=== PATIENT | male | born 1960 | race American Indian/Alaskan Native ===

== ENCOUNTER 2018-01-27 12:45 | Emergency (ER) | payer BC, OTHER ==
[2018-01-27 13:30] VITALS: BMI 32.1
--- NOTE | 2018-01-27 13:41 | ED PDOC ---
Arrival/HPI - General Historian: Patient - History of Present Illness Time/Duration: 4-6 hours Symptom Onset: Gradual Symptom Course: Unchanged Quality: Aching Severity Level: 7 <Jose Reno - Last Filed: 01/27/18 16:12> - History of Present Illness Activities at Onset: Rest Context: Home <Paulo cAevedo - Last Filed: 01/27/18 18:25> - General Chief Complaint: High Blood Pressure - History of Present Illness Narrative History of Present Illness (Text): Patient is a 57 year old male with a past medical history of hypertension, hyperlipidemia, and diabetes who presents to the emergency room for evaluation and treatment of elevated blood pressure. Patient states his systolic blood pressure was in the 190s this AM. Also admits to new onset left shoulder pain when he reached to grab an object. Pain is a dull aching sensation and remains localized to the posterior deltoid. Rated a 7/10. Denies fever, chills, chest pain, SOB, abdominal pain, nausea, vomiting, diarrhea, constipation, and urinary symptoms. 01/27/18 13:33 (Jose Reno) Past Medical History - Provider Review Nursing Documentation Reviewed: Yes - Travel History Have you recently traveled outside [place] w/in the past 3 mons?: No - Infectious Disease Hx of Infectious Diseases: None - Cardiac Hx Hypertension: Yes - Neurological Hx Migraine: Yes - Endocrine/Metabolic Hx Diabetes Mellitus Type 2: Yes - Musculoskeletal/Rheumatological Hx Arthritis: Yes ("left hip") - Psychiatric Hx Substance Use: No - Anesthesia Hx Anesthesia: Yes <Jose Reno - Last Filed: 01/27/18 16:12> - Past History Past History: Non-Contributing <Paulo Acevedo - Last Filed: 01/27/18 18:25> Family/Social History - Physician Review Nursing Documentation Reviewed: Yes Family/Social History: Unknown Family HX Smoking Status: Never Smoked Hx Alcohol Use: Yes (socially) Hx Substance Use: No Substance used: marijuana <Jose Reno - Last Filed: 01/27/18 16:12> Allergies/Home Meds <Jose Reno - Last Filed: 01/27/18 16:12> <Paulo Acevedo - Last Filed: 01/27/18 18:25> Allergies/Adverse Reactions: Allergies No Known Allergies Allergy (Verified 11/03/17 13:21) Home Medications: Home Meds Medication Instructions Recorded Confirmed Nabumetone 750 mg PO BID 04/18/17 04/18/17 Pregabalin [Lyrica] 50 mg PO BID 04/18/17 04/18/17 metFORMIN [glucOPHAGE] 500 mg PO BID 04/18/17 04/18/17 Review of Systems - Review of Systems Constitutional: Normal Eyes: Normal ENT: Normal Respiratory: Normal Cardiovascular: Normal Gastrointestinal: Normal Genitourinary Male: Normal Musculoskeletal: Other (left shoulder pain) Skin: Normal Neurological: Normal Endocrine: Normal Hemo/Lymphatic: Normal Psychiatric: Normal <Jose Reno - Last Filed: 01/27/18 16:12> Physical Exam - Systems Exam Head: Present: Atraumatic, Normocephalic Pupils: Present: PERRL Extroacular Muscles: Present: EOMI Conjunctiva: Present: Normal Mouth: Present: Moist Mucous Membranes Neck: Present: Normal Range of Motion Respiratory/Chest: Present: Clear to Auscultation, Good Air Exchange. No: Respiratory Distress, Accessory Muscle Use Cardiovascular: Present: Regular Rate and Rhythm, Normal S1, S2. 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 No: Edema Neurological: Present: GCS=15, CN II-XII Intact, Speech Normal Skin: Present: Warm, Dry, Normal Color. No: Rashes Psychiatric: Present: Alert, Oriented x 3, Normal Insight, Normal Concentration <Jose Reno - Last Filed: 01/27/18 16:12> Vital Signs Reviewed: Yes Temperature: Afebrile Blood Pressure: Hypertensive Pulse: Regular Respiratory Rate: Normal Appearance: Positive for: Well-Appearing, Non-Toxic, Uncomfortable. No: Ill- Appearing, Unkept Pain Distress: None Mental Status: Positive for: Alert and Oriented X 3 <Paulo Acevedo - Last Filed: 01/27/18 18:25> Vital Signs Temp Pulse Resp BP Pulse Ox 01/27/18 15:46 88 18 162/97 H 96 01/27/18 13:49 98.3 F 92 H 18 157/95 H 98 Medical Decision Making <Jose Reno - Last Filed: 01/27/18 16:12> Re-evaluation Time: 16:30 Reassessment Condition: Improving,but remains with symptoms - RAD Interpretation Corporate Relations Director: Radiologist - EKG Interpretation Interpreted by ED Physician: Yes Type: 12 lead EKG Comparison: Similar to previous EKG <Paulo Acevedo - Last Filed: 01/27/18 18:25> ED Course and Treatment: Assessment and Plan: Patient is a 57 year old male with a past medical history of hypertension, hyperlipidemia, and diabetes who presents to the emergency room for evaluation and treatment of elevated blood pressure and left shoulder pain. Left Shoulder Pain 01/27/18 13:43 - Left shoulder xray - EKG - CXR - POC glucose 01/27/18 16:13 - left shoulder xray no acute fracture, no dislocation - EKG reviewed and appreciated- NSR HR 93bpm, QTc 460 - Chest xray- no active disease - dizziness has resolved - ok for discharge to home (Jose Reno) I performed the hx and physical exam of the patient and discussed their mgt with the RESIDENT. I reviewed the RESIDENT's NOTE and agree with the assessment and plan of care. pt appears comfortable pt is not in any distress NEURO: CNII-XII WNL, no facial asymmetries, no slurr speech, oriented x 3, NIH stroke scale ~ 0 NECK: intact ROM, no midline tenderness, no gross deformities, no step off, no nuchal rigidity, no meningeal signs, Chest: CTA b/l, no w/r/r, no accessory muscle use noted, no tachypenia EXT: intact ROM to all limbs, neurovasc intact b/l, no gross deformities, no crepitus noted, strength 5/5 grossly intact b/l, + ambulatory SKIN: cap refill < 1sec, no ulcerations, no petechiae, no gross pallor pt felt some improvements after medications vital signs remained pretty much unchanged attempt to reach out to pt's PCP was not reciprocated, unable to speak to pt's PCP pt is made aware of his medical results pt is encouraged fluids pt is encouraged outpt follow up pt will be discharged home (Paulo Acevedo) - RAD Interpretation Narrative RAD Interpretations (Text): PROCEDURE: Radiographs of the Left Shoulder HISTORY: left shoulder pain COMPARISON: No prior. FINDINGS: BONES: Normal. No fracture. JOINTS: Normal. Glenohumeral and acromioclavicular joints preserved. No osteoarthritis. SOFT TISSUES: Normal. OTHER FINDINGS: None. IMPRESSION: Normal radiographs of the left shoulder. HISTORY: pain COMPARISON: No prior. TECHNIQUE: Chest PA and lateral FINDINGS: LUNGS: No active pulmonary disease. PLEURA: No significant pleural effusion identified. No pneumothorax apparent. CARDIOVASCULAR: Normal. OSSEOUS STRUCTURES: No significant abnormalities. VISUALIZED UPPER ABDOMEN: Normal. OTHER FINDINGS: None. IMPRESSION: No active disease 01/27/18 15:22 (Jose Reno) Radiology Orders: 01/27/18 13:35 CHEST TWO VIEWS (PA/LAT) [RAD] Stat SHOULDER LEFT [RAD] Stat - EKG Interpretation EKG Interpretation (Text): EKG NSR HR 93bpm, QTc 460, no defining ST T wave changes 01/27/18 14:55 (Jose Reno) - Medication Orders Current Medication Orders: Discontinued Medications Diazepam (Valium) 5 mg PO STAT STA PRN Reason: Protocol Stop: 01/27/18 13:54 Last Admin: 01/27/18 14:48 Dose: 5 mg Disposition/Present on Arrival - Present on Arrival Any Indicators Present on Arrival: Yes History of DVT/PE: No History of Uncontrolled Diabetes: Yes Urinary Catheter: No History Surgical Site Infection Following: None - Disposition Have Diagnosis and Disposition been Completed?: Yes Disposition Time: 16:15 <Jose Reno - Last Filed: 01/27/18 16:12> - Present on Arrival History of Decub. Ulcer: No - Disposition Patient Plan: Discharge <Paulo Acevedo - Last Filed: 01/27/18 18:25> - Disposition Diagnosis: Shoulder pain, left, Dizziness, Elevated blood pressure reading Disposition: HOME/ ROUTINE Patient Problems: Current Active Problems Problem Status Onset Dizziness Acute Shoulder pain, left Acute Condition: FAIR Discharge Instructions (ExitCare): Hypertension (ED), High Blood Pressure (DC) , Dizziness, Nonvertigo, (DC) Print Language: ROMANSH Additional Instructions: MENG VIEYRA, thank you for letting us take care of you today. Your provider was Paulo Acevedo MD and you were treated for dizziness and shoulder pain. The emergency medical care you received today was directed at your acute symptoms. If you were prescribed any medication, please fill it and take as directed. It may take several days for your symptoms to resolve. Return to the Emergency Department if your symptoms worsen, do not improve, or if you have any other problems. Please contact your doctor or call one of the physicians/clinics you have been referred to that are listed on the Patient Visit Information form that is included in your discharge packet. Bring any paperwork you were given at discharge with you along with any medications you are taking to your follow up visit. Our treatment cannot replace ongoing medical care by a primary care provider outside of the emergency department. Thank you for allowing the [facility] team to be part of your care today. If you had an X-Ray or CT scan: A Radiologist will review the ED reading if any change in treatment is needed we will contact you. If you had a blood, urine, or wound culture: It will take several days for the results, if any change in treatment is needed we will contact you. If you had an STI test: It will take 48 hours for the results. Please call after 1 week if you have not heard back. Prescriptions: Meclizine [Antivert] 12.5 mg PO TID PRN 7 Days tab PRN Reason: Dizziness Referrals: Arnol Lea MD [Primary Care Provider] - Follow up with primary Forms: [employer] (Lithuanian)
[2018-01-27 13:49] VITALS: RESP 18
--- NOTE | 2018-01-27 14:55 | RAD ---
HISTORY: pain COMPARISON: No prior. TECHNIQUE: Chest PA and lateral FINDINGS: LUNGS: No active pulmonary disease. PLEURA: No significant pleural effusion identified. No pneumothorax apparent. CARDIOVASCULAR: Normal. OSSEOUS STRUCTURES: No significant abnormalities. VISUALIZED UPPER ABDOMEN: Normal. OTHER FINDINGS: None. IMPRESSION: No active disease.
--- NOTE | 2018-01-27 14:56 | RAD ---
PROCEDURE: Radiographs of the Left Shoulder HISTORY: left shoulder pain COMPARISON: No prior. FINDINGS: BONES: Normal. No fracture. JOINTS: Normal. Glenohumeral and acromioclavicular joints preserved. No osteoarthritis. SOFT TISSUES: Normal. OTHER FINDINGS: None. IMPRESSION: Normal radiographs of the left shoulder.
--- NOTE | 2018-01-27 16:25 | CARD ---
APPROVED REPORT EKG Measurement Heart [id number] <Conclusion> Normal sinus rhythm Minimal voltage criteria for LVH, may be normal variant T wave abnormality, consider inferior ischemia Prolonged QT Abnormal ECG
[2018-01-27 19:10] VITALS: BP 157/92; PULSE 72; TEMP 98.4; O2SAT 97
== END 2018-01-27 16:33 | disposition home or self-care (01) ==
LOC: ED 12:45
DX: I10 Essential (primary) hypertension (principal); M25.512 Pain in left shoulder; R42 Dizziness and giddiness; E78.5 Hyperlipidemia, unspecified; E11.65 Type 2 diabetes mellitus with hyperglycemia

== ENCOUNTER 2018-10-19 07:28 | Emergency (ER) | payer BC ==
[2018-10-19 07:29] VITALS: BMI 32.1
[2018-10-19 07:39] VITALS: RESP 16; TEMP 97.9; O2SAT 95
[2018-10-19] MEDS ORDERED: oxyCODONE 10 mg Immediate Release Tab PO STA (08:52)
[2018-10-19 09:35] VITALS: BP 148/96; PULSE 86
--- NOTE | 2018-10-19 11:04 | RAD ---
Date of service: 10/19/2018 PROCEDURE: Radiographs of the left clavicle. HISTORY: r/o fx COMPARISON: None. FINDINGS: LEFT CLAVICLE: No fracture or focal lesion. JOINTS: Left acromioclavicular and glenohumeral joints are grossly unremarkable. SOFT TISSUES: Grossly unremarkable. OTHER FINDINGS: None. IMPRESSION: Normal radiographs of the left clavicle.
--- NOTE | 2018-10-19 11:04 | RAD ---
Date of service: 10/19/2018 PROCEDURE: Radiographs of the Left Shoulder HISTORY: r/o fx COMPARISON: 01/27/2018 left shoulder radiographs October 19, 2018 left clavicle reported separately FINDINGS: BONES: Normal. No fracture. JOINTS: Normal. Glenohumeral and acromioclavicular joints preserved. No osteoarthritis. SOFT TISSUES: Normal. OTHER FINDINGS: None. IMPRESSION: Unremarkable radiographs of the left shoulder.No significant interval change compared to the prior examination(s).
--- NOTE | 2018-10-19 13:44 | ED PDOC ---
Arrival/HPI - General Chief Complaint: Upper Extremity Problem/Injury Historian: Patient - History of Present Illness Narrative History of Present Illness (Text): 10/19/18 13:43 Merrick Stewart is a 58 year old male, with hypertension, hyperlipidemia, or di abetes, who presents to the emergency department complaning of left shoulder pain. Patient states he was trying to get out of his car when he slipped and grabbed onto something. Patient describes pain as pins and needles sensation. Patient informs taking percocet and lidoderm patche with no relief. Patient states he has an appointment with his PMD today. Patient denies chest pain, shortness of breath, back pain, neck pain, loss of consciousness, headache, dizziness, or any other complaint. Time/Duration: < month (2 -3 weeks) Symptom Onset: Sudden Symptom Course: Unchanged Activities at Onset: Light Context: Standing (getting out of car) Past Medical History - Provider Review Nursing Documentation Reviewed: Yes - Past History Past History: Non-Contributing - Infectious Disease Hx of Infectious Diseases: None - Cardiac Hx Cardiac Disorders: Yes Hx Hypertension: Yes - Neurological Hx Neurological Disorder: Yes Hx Migraine: Yes - Endocrine/Metabolic Hx Endocrine Disorders: Yes Hx Diabetes Mellitus Type 2: Yes - Musculoskeletal/Rheumatological Hx Musculoskeletal Disorders: Yes Hx Arthritis: Yes ("left hip") - Psychiatric Hx Psychophysiologic Disorder: No Hx Substance Use: No - Surgical History Hx 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) - Anesthesia Hx Anesthesia: Yes Family/Social History - Physician Review Nursing Documentation Reviewed: Yes Family/Social History: No Known Family HX Smoking Status: Never Smoked Hx Alcohol Use: Yes (socially) Hx Substance Use: No Substance used: marijuana Allergies/Home Meds Allergies/Adverse Reactions: Allergies No Known Allergies Allergy (Verified 11/03/17 13:21) Home Medications: Home Meds Medication Instructions Recorded Confirmed Nabumetone 750 mg PO BID 04/18/17 04/18/17 Pregabalin [Lyrica] 50 mg PO BID 04/18/17 04/18/17 metFORMIN [glucOPHAGE] 500 mg PO BID 04/18/17 04/18/17 Review of Systems - Physician Review All systems were reviewed & negative as marked: Yes - Review of Systems Respiratory: absent: SOB Cardiovascular: absent: Chest Pain Musculoskeletal: Arthralgias (left shoulder pain). absent: Back Pain, Neck Pain Neurological: absent: Headache, Dizziness, Other (loss of consciousness) Physical Exam Vital Signs Reviewed: Yes Vital Signs Temp Pulse Resp BP Pulse Ox 10/19/18 09:35 86 16 148/96 H 95 10/19/18 07:38 97.9 F 85 16 159/93 H 95 Temperature: Afebrile Blood Pressure: Hypertensive Pulse: Regular Respiratory Rate: Normal Appearance: Positive for: Well-Appearing, Non-Toxic, Comfortable Pain Distress: None Mental Status: Positive for: Alert and Oriented X 3 - Systems Exam Head: Present: Atraumatic, Normocephalic Pupils: Present: PERRL Extroacular Muscles: Present: EOMI Conjunctiva: Present: Normal Mouth: Present: Moist Mucous Membranes Neck: Present: Normal Range of Motion Respiratory/Chest: Present: Clear to Auscultation, Good Air Exchange. No: Respiratory Distress, Accessory Muscle Use Cardiovascular: Present: Regular Rate and Rhythm, Normal S1, S2. No: Murmurs Abdomen: No: Tenderness, Distention, Peritoneal Signs Back: Present: Normal Inspection Upper Extremity: Present: Tenderness (tenderness to palpation to left clavicle and left trapezius area). No: Cyanosis, Edema Skin: Present: Warm, Dry, Normal Color. No: Rashes Psychiatric: Present: Alert, Oriented x 3, Normal Insight, Normal Concentration Medical Decision Making ED Course and Treatment: 10/19/18 13:56 Impression: Patient is a 58 year old male who presents to the emergency department complaining of left shoulder pain s/p slipping getting out of his car 2-3 weeks ago. Differential Diagnosis included but are not limited to: Plan: -- Flexeril -- oxyCODONE -- X-Ray Left Clavicle -- X-Ray Left Shoulder -- Reassess and disposition Prior Visits: Notes and results from previous visits were reviewed. Progress Notes: - RAD Interpretation Narrative RAD Interpretations (Text): 10/19/18 11:00 Left Clavicle X-Ray shows: FINDINGS: LEFT CLAVICLE: No fracture or focal lesion. JOINTS: Left acromioclavicular and glenohumeral joints are grossly unremarkable. SOFT TISSUES: Grossly unremarkable. OTHER FINDINGS: None. IMPRESSION: Normal radiographs of the left clavicle. 10/19/18 11:00 Left Shoulder X-Ray shows: FINDINGS: BONES: Normal. No fracture. JOINTS: Normal. Glenohumeral and acromioclavicular joints preserved. No osteoarthritis. SOFT TISSUES: Normal. OTHER FINDINGS: None. IMPRESSION: Unremarkable radiographs of the left shoulder.No significant interval change compared to the prior examination(s). Radiology Orders: 10/19/18 07:50 CLAVICLE LEFT [RAD] Stat SHOULDER LEFT [RAD] Stat Electrostatic Painter: Radiologist - Medication Orders Current Medication Orders: Discontinued Medications Cyclobenzaprine HCl (Flexeril) 10 mg PO STAT STA Stop: 10/19/18 08:53 Last Admin: 10/19/18 09:30 Dose: 10 mg Oxycodone HCl (Oxycodone Immediate Release Tab) 10 mg PO STAT STA Stop: 10/19/18 08:53 Last Admin: 10/19/18 09:30 Dose: 10 mg PRAVEEN Pain Assessment Document 10/19/18 09:30 MR (Rec: 10/19/18 09:35 MR [id number]) Pain Reassessment Is this a pain reassessment? Yes Sleep Is patient sleeping during reassessment? No Presence of Pain Presence of Pain Yes Pain Scale Used Protocol: PSCALES Pain Scale Used Numeric Location Left, Right or Bilateral Left Pain Location Body Site Shoulder Description Description Stabbing Intensity of Pain at present 10 Pain Behavior Irritability Facial Grimacing Aggravating Factors Changing Position Alleviating Factors Position Change - Scribe Statement The provider has reviewed the documentation as recorded by the Scribe Boni Peralta All medical record entries made by the Scribe were at my direction and personally dictated by me. I have reviewed the chart and agree that the record accurately reflects my personal performance of the history, physical exam, medical decision making, and the department course for this patient. I have also personally directed, reviewed, and agree with the discharge instructions and disposition. Disposition/Present on Arrival - Present on Arrival Any Indicators Present on Arrival: No History of DVT/PE: No History of Uncontrolled Diabetes: Yes Urinary Catheter: No History of Decub. Ulcer: No History Surgical Site Infection Following: None - Disposition Have Diagnosis and Disposition been Completed?: Yes Diagnosis: Musculoskeletal pain Disposition: HOME/ ROUTINE Disposition Time: 08:50 Condition: GOOD Discharge Instructions (ExitCare): Muscle Strain (DC) Additional Instructions: MERRICK STEWART, thank you for letting us take care of you today. Your provider was Boni Passafaro DO and you were treated for (L) SHOULDER PAIN. The emergency medical care you received today was directed at your acute symptoms. If you were prescribed any medication, please fill it and take as directed. It may take several days for your symptoms to resolve. Return to the Emergency Department if your symptoms worsen, do not improve, or if you have any other problems. Please contact your doctor or call one of the physicians/clinics you have been referred to that are listed on the Patient Visit Information form that is included in your discharge packet. Bring any paperwork you were given at discharge with you along with any medications you are taking to your follow up visit. Our treatment cannot replace ongoing medical care by a primary care provider outside of the emergency department. Thank you for allowing the [facility] team to be part of your care today. Follow up with your primary care doctor as scheduled for today for further management. He may recommend a MRI in the future. Prescriptions: Cyclobenzaprine [Cyclobenzaprine HCl] 10 mg PO Q8 PRN #20 tab PRN Reason: Muscle Spasm Referrals: [facility] Loree Rethomas, [Non-Staff] - Follow up with primary Forms: [employer] (Mongolian)
== END 2018-10-19 10:48 | disposition home or self-care (01) ==
LOC: ED 07:28
DX: M79.10 Myalgia, unspecified site (principal); E11.9 Type 2 diabetes mellitus without complications; E78.5 Hyperlipidemia, unspecified; I10 Essential (primary) hypertension